=== PATIENT | male | born 1975 | race Caucasian/White ===

== ENCOUNTER 2022-09-13 17:55 | Emergency (ER) | payer MEDICAID ==
[~2022-09-13] VITALS: Ht 165.1 cm; Wt 82.7 kg
[2022-09-13 18:29] VITALS: BP 146/87
--- NOTE | 2022-09-13 18:58 | NUR ---
47/M BIB CAREGIVER FROM [facility] C/O MID ABDOMINAL PAIN SINCE THIS MORNING. CAREGIVER STATES NO MEDICATIONS WERE GIVEN FOR PAIN, DENIES N/V/D OR URINARY SYMPTOMS, REPORTS DECREASED APPETITE TODAY.
--- NOTE | 2022-09-13 19:20 | NUR ---
Pt report given to CONNIE ARENAS. Transfer of care at this time.
--- NOTE | 2022-09-13 19:20 | NUR ---
ASSUME CARE OF PT, REPORT GIVEN BY MONET RN, PT BIB CAREGIVER FOR ABD PAIN, PT MENTALLY DELAYED AND AT BASELINE PER CAREGIVER, CAREGIVER STATES PT HAS NOT BEEN EATING OR DRINKING MUCH, PT WAS CRYING AND GUARDING HIS ABDOMEN. PT PLACED ON MONITOR.
--- NOTE | 2022-09-13 19:30 | NUR ---
DR FREEMAN AT BEDSIDE EVALUATING PT.
[2022-09-13] MEDS ORDERED: NACL 0.9% 1,000 ML IV ONE (20:00)
[2022-09-13 20:16] LABS: BASOPHILS % (AUTO) 0.4 % (0.0-2.0); EOSINOPHILS % (AUTO) 0.2 % (0.0-4.0); HEMATOCRIT 41.1 % (36-52); HEMOGLOBIN 14.3 g/dL (12.0-18.0); LYMPHOCYTES # (AUTO) 1.2 K/uL (2.0-11.5); LYMPHOCYTES % (AUTO) 14.1 % (20.5-51.1); MEAN CORPUSCULAR HEMOGLOBIN 30 pg (27-31); MEAN CORPUSCULAR HGB CONC 35 g/dL (33-37); MEAN CORPUSCULAR VOLUME 87.1 fL (80-94); MONOCYTES % (AUTO) 11.5 % (1.7-9.3); NEUTROPHILS # (AUTO) 6.2 K/uL (1.8-7.7); NEUTROPHILS % (AUTO) 73.8 % (42.2-75.2); PLATELET COUNT (AUTO) 257 K/uL (140-450); RED BLOOD CELL COUNT(AUTO) 4.71 MIL/uL (4.20-6.10); RED CELL DISTRIBUTION WIDTH 13.6 % (11.6-13.7); WHITE BLOOD COUNT (AUTO) 8.4 K/uL (4.8-10.8)
[2022-09-13 20:36] LABS: ALBUMIN 4.3 g/dL (3.4-5.0); ANION GAP 16.2 (8-16); CARBON DIOXIDE 26.2 mmol/L (21-32); CREATININE 1.2 mg/dL (0.6-1.3); POTASSIUM 3.4 mmol/L (3.5-5.1); TOTAL BILIRUBIN 0.3 mg/dL (0.0-1.0)
--- NOTE | 2022-09-13 20:40 | NUR ---
SPOKE TO APRIL KENNEDY, FATHER AND GUARDIAN OF PT REGARDING UPDATE.
--- NOTE | 2022-09-13 20:53 | NUR ---
PT RETURN FROM CT
[2022-09-13] MEDS ORDERED: KETOROLAC 15 MG/ML VIAL IVP ONE (21:40)
[2022-09-13 21:46] LABS: APPEARANCE,URINE SL CLOUDY (CLEAR); BILIRUBIN,URINE NEGATIVE (NEGATIVE); BLOOD, URINE NEGATIVE (NEGATIVE); COLOR,URINE YELLOW (YELLOW); LEUKOCYTE ESTERASE ,URINE 1+ (NEGATIVE); NITRITE, URINE NEGATIVE (NEGATIVE); PH,URINE 6.5 (5.0-9.0); UGLUCOSE NEGATIVE (NEGATIVE)
--- NOTE | 2022-09-13 21:52 | NUR ---
PT RESTING IN BED, PT DENIES ANY PAIN AT PRESENT TIME.
[2022-09-13 21:56] LABS: RBC,URINE 0-5 /HPF (0-5)
[2022-09-13 21:57] LABS: OTHER CASTS, URINE None Seen /LPF (None Seen)
[2022-09-13] MEDS ORDERED: POLY17PD72 PO (22:18)
[2022-09-13] MEDS ORDERED: CEPH-588 PO (22:31)
[2022-09-13 23:01] VITALS: BP 122/70
--- NOTE | 2022-09-13 23:05 | NUR ---
Patient discharged with v/s stable. Written and verbal after care instructions given and explained. Patient/CAREGIVER verbalized understanding. Ambulatory with caregiver. All questions addressed prior to discharge. Advised to follow up with PMD.
--- NOTE | 2022-09-16 08:15 | NUR ---
LATE ENTRY. RECEIVED POSITIVE URINE CULTURE. FORM GIVEN TO DR WEBER. TREATMENT APPROPRIATE. FORM PLACED IN BINDER
== END 2022-09-13 23:05 | disposition home or self-care (01) ==
LOC: MED 17:55
DX: R10.84 Generalized abdominal pain (principal); Z79.2 Long term (current) use of antibiotics; Z79.899 Other long term (current) drug therapy
CPT/HCPCS: 36415; 74176; 76705; 80053; 81001; 83690; 85025; 87086; 96361; 96374; 99285; J1885; J7030; Q0092